=== PATIENT | male | born 1955 | race Caucasian/White ===

== ENCOUNTER → 2019-03-16 | Outpatient (CLI) | payer BC ==
[~2019-03-16] MED LIST: ALLO100T70 PO; ATOR10TA24 PO; HYDR-2966 PO; INDO75CA PO; LOSA-54 PO; LOSA100T75 PO; OLME40TA3 PO; PRED2.5T6 PO; VARI50KI IM
[2019-03-16 11:16] LABS: PLATELET COUNT, AUTOMATED 269 K/uL (150-450)
[2019-03-16 11:20] LABS: LDL CHOLESTEROL 59 mg/dl
== END ==
LOC: LAB 10:17
PROVIDERS: ATTEND Nurse Practitioner Family
DX: Z12.5 Encounter for screening for malignant neoplasm of prostate (principal); E78.5 Hyperlipidemia, unspecified; M10.9 Gout, unspecified; Z79.899 Other long term (current) drug therapy; I10 Essential (primary) hypertension
CPT/HCPCS: 36415; 82040; 82247; 82310; 82374; 82435; 82465; 82565; 82947; 83036; 83718; 84075; 84132; 84153; 84155; 84295; 84443; 84450; 84460; 84478; 84520; 84550; 85025